=== PATIENT | male | born 1955 | race Caucasian/White ===

== ENCOUNTER → 2019-04-25 09:12 | Outpatient (CLI) | payer MEDICARE, SELFPAY ==
--- NOTE | 2019-04-25 09:21 | MR_ITS ---
PROCEDURE: MR HEAD/BRAIN WO/W CON CLINICAL INDICATION: HX OF PROSTATE CANCER, NEW ONSET HEADACHE Dizziness, headaches, history of prostate cancer COMPARISON: No exams were available for comparison TECHNIQUE: Routine multiplanar multi echo sequences are performed without and with gadolinium enhancement. FINDINGS: No midline shift, mass effect, intracranial hemorrhage or hydrocephalus is evident. There are scattered periventricular and subcortical T2 white matter hyperintensities which are nonspecific. These areas do not demonstrate contrast enhancement or restricted diffusion there is a small cystic area which measures 10 x 6 mm in the region of the right Xuan hippocampal gyrus and may represent a choroidal fissure cyst. This does not demonstrate contrast enhancement. The pituitary, optic chiasm, corpus callosum have an unremarkable appearance. Craniocervical junction is unremarkable. There is bulging disc at C3-C4 with narrowing of the canal which may be better evaluated with cervical spine MRI if clinically desired. 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 No mastoid effusion or sinus air-fluid level. IMPRESSION: 1. No acute intracranial findings. 2. Scattered periventricular and subcortical T2 white matter hyperintensities which may reflect ischemic gliotic changes from microvascular disease. Differential diagnosis includes migraine headache and demyelinating process. 3. 8 mm pineal cyst. 4. 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 Bulging disc at C3-C4 with canal stenosis which may be better evaluated with MRI of the cervical spine if clinically warranted Dictated by: Justin Browning MD 04/26/2019 10:54 Electronically signed by Justin Browning MD in [place] 04/26/2019 10:54
[2019-04-25 10:04] LABS: Blood Urea Nitrogen 16 mg/dl (9-20); Estimated Glomerular Filt Rate 85 ml/min (>60); GFR (African American) 103 ML/MIN (>60)
== END ==
PROVIDERS: PCP Family Medicine; Visit Provider Family Medicine
DX: R51 Headache (principal); Z85.46 Personal history of malignant neoplasm of prostate
CPT/HCPCS: 36415; 70553; 82565; 84520; A9576

== ENCOUNTER → 2020-03-31 09:31 | Outpatient (CLI) | payer MEDICARE, SELFPAY ==
[2020-03-31 10:46] LABS: Coronavirus 19 IgG Antibody Positive (Negative); Coronavirus 19 IgM Antibody Negative (Negative)
== END ==
PROVIDERS: Visit Provider Ophthalmology
DX: Z01.812 Encounter for preprocedural laboratory examination (principal); Z20.822 Contact with and (suspected) exposure to COVID-19; H25.11 Age-related nuclear cataract, right eye; Z86.16 Personal history of COVID-19
CPT/HCPCS: 36415; 86328

== ENCOUNTER 2020-04-01 07:06 | Day surgery (SDC) | payer MEDICARE, SELFPAY ==
[2020-03-27 13:49] VITALS: BMI 29.5
[2020-04-01 07:52] VITALS: BP 140/84; PULSE 53; RESP 18; TEMP 36.5; O2SAT 98
[2020-04-01 09:01] VITALS: BP 161/85; PULSE 56; RESP 20; O2SAT 98
[2020-04-01 09:06] VITALS: BP 147/81; PULSE 54; RESP 20; O2SAT 99
[2020-04-01 09:11] VITALS: BP 143/87; PULSE 55; RESP 18; O2SAT 100
[2020-04-01 09:16] VITALS: BP 139/89; PULSE 54; RESP 18; O2SAT 99
[2020-04-01 09:21] VITALS: BP 132/86; PULSE 69; RESP 18; TEMP 36.2; O2SAT 99
== END 2020-04-01 09:29 | disposition home or self-care (01) ==
LOC: OR 07:06
PROVIDERS: PCP Family Medicine; Visit Provider Ophthalmology
DX: H26.9 Unspecified cataract (principal); E78.5 Hyperlipidemia, unspecified; Z85.46 Personal history of malignant neoplasm of prostate; Z86.79 Personal history of other diseases of the circulatory system; Z80.9 Family history of malignant neoplasm, unspecified; Z82.49 Family history of ischemic heart disease and other diseases of the circulatory system; Z79.82 Long term (current) use of aspirin; Z79.899 Other long term (current) drug therapy
CPT/HCPCS: 66984; V2632

== ENCOUNTER → 2020-04-28 07:29 | Outpatient (CLI) | payer MEDICARE, SELFPAY ==
[2020-04-28 09:38] LABS: Coronavirus 19 IgG Antibody Positive (Negative); Coronavirus 19 IgM Antibody Negative (Negative)
== END ==
PROVIDERS: Visit Provider Ophthalmology
DX: Z01.812 Encounter for preprocedural laboratory examination (principal)
CPT/HCPCS: 36415; 86328

== ENCOUNTER 2020-04-29 06:35 | Day surgery (SDC) | payer MEDICARE, SELFPAY ==
[2020-04-22 10:24] VITALS: BMI 30.4
[2020-04-29 06:48] VITALS: BP 143/83; PULSE 56; RESP 18; TEMP 36.4; O2SAT 97
[2020-04-29 07:09] LABS: POC Glucose,Bedside 99 (70-110)
[2020-04-29 08:02] VITALS: BP 144/85; PULSE 55; RESP 16; O2SAT 99
[2020-04-29 08:07] VITALS: BP 151/85; PULSE 56; RESP 16; O2SAT 97
[2020-04-29 08:12] VITALS: BP 154/79; PULSE 56; RESP 16; O2SAT 97
[2020-04-29 08:17] VITALS: BP 155/88; PULSE 57; RESP 16; O2SAT 97
[2020-04-29 08:21] VITALS: BP 147/86; PULSE 55; RESP 16; TEMP 36.4; O2SAT 99
== END 2020-04-29 08:27 | disposition home or self-care (01) ==
LOC: OR 06:36
PROVIDERS: PCP Family Medicine; Visit Provider Ophthalmology
DX: H25.813 Combined forms of age-related cataract, bilateral (principal); H53.149 Visual discomfort, unspecified; E78.5 Hyperlipidemia, unspecified; Z85.46 Personal history of malignant neoplasm of prostate; Z82.49 Family history of ischemic heart disease and other diseases of the circulatory system; Z80.9 Family history of malignant neoplasm, unspecified; Z79.82 Long term (current) use of aspirin; Z79.899 Other long term (current) drug therapy
CPT/HCPCS: 66984; 82962; V2632

== ENCOUNTER → 2022-07-23 12:53 | Outpatient (CLI) | payer MEDICARE, SELFPAY ==
--- NOTE | 2022-07-23 | CA_ITS ---
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 HR Resting HR: 74 bpm Max Heart Rate (APMHR): 154 bpm Max HR Achieved: 136 bpm Target HR (85% APMHR): 131 bpm % of APMHR: 88 Recovery HR: 82 bpm BP Resting BP: 155/98 mmHg Max BP: 230/110 mmHg Recovery BP: 150.0/89.0 mmHg BP response to stress: Abnormal hypertensive response to stress. ECG Resting ECG: NSR Stress ECG: <1mm upsloping ST depression in the inferolateral leads Arrhythmia: None Recovery ST Change: Return to baseline Recovery Arrhythmia: None Clinical Reason for Termination: chest pain, elevated BP Exercise duration: 07:01 min Highest Stage Achieved: Stage 3: 3.4 mph at 14% grade. Exercise capacity: 10.1 METs Overall Exercise Capacity for Age: Good Stress ECG Conclusion The patient was able to exercise for 7m 01s, achieving 10.1 METs. The exercise stress test was stopped due to chest pain and elevated BP. He has good exercise capacity for age and sex. He has a normal HR response but an exaggerated BP response to exercise. At baseline, ECG demonstrated normal sinus rhythm with no significant ST changes. At peak stress, there were < 1mm upsloping ST depression that eventually were improving back to baseline during recovery. Findings are suggestive of possible ischemia. Myoview images are reported separately. Test Summary REST 03:09 0.0 0.0 74 . 155/ 98 . . Stage 1 01:00 10.0 1.7 90 . . . . Stage 1 02:00 10.0 1.7 108 . . . . Stage 1 03:00 10.0 1.7 108 . . . . Stage 2 01:00 12.0 2.5 118 . 180/100 . . Stage 2 02:00 12.0 2.5 129 . 180/100 . . Stage 2 . . . . . . . Myoview Injected Stage 2 03:00 12.0 2.5 129 . 210/110 . . Stage 3 01:00 14.0 3.4 136 . . . . Stage 3 01:01 14.0 3.4 136 . . . Stop exercise at 07:01 RECOVERY 01:00 0.0 0.0 108 . 230/110 . . RECOVERY 02:00 0.0 0.0 83 . 230/110 . . RECOVERY 03:00 0.0 0.0 81 . 178/ 94 . . RECOVERY 04:00 0.0 0.0 78 . 178/ 94 . . RECOVERY 05:00 0.0 0.0 78 . 155/ 88 . . RECOVERY 06:00 0.0 0.0 80 . 150/ 89 . . RECOVERY 06:14 0.0 0.0 83 . 150/ 89 . . Electronically signed by : Sofiya Shaw, 07/25/2022 17:29:48
--- NOTE | 2022-07-23 13:37 | NM_ITS ---
APPROVED REPORT Exam: Nuclear Stress Test Indication: CAD, 2 STENTS, H/O MT, HYPERLIPIDEMIA, FM HX, SOB Patient Location: Outpatient Stress Tech: Cassidy Hess PR Tech:CORDELIA Pappas RT(R)(N) Ht: 5 ft 11 in Wt: 210 lbs HR: 57 bpm BP: 153/91 mmHg BSA: 2.15 m2 TID: 1.15 BMI: 29.2 History: CAD, 2 STENTS, H/O MT, HYPERLIPIDEMIA, FM HX, SOB Procedure: Patient exercised on Shailesh protocol 7:00 minutes and sec, resting heart rate 57 bpm, resting blood pressure 153/91 mmHg, with exercise maximum heart rate achived was 131 bpm which is 88 % of the maximum predicted heart rate and blood pressure was 230/110 mmHg. Test was stopped due to FATIGUE. Patient has exercise capacity, achieved 10.1 METs of workload on treadmill, the blood pressure response to exercise was . Cardiac Stress and Resting SPECT Images: Cardiac Stress and Resting SPECT images were obtained using technetium 99m Myoview 32.1 mCi stress and 9.98 mCi at rest. Raw images demonstrate significant soft tissue shadowing along with significant GI count uptake, which may affect the diagnostic interpretation of the study. Resting and stress imaging in supine position demonstrate a large-sized, severe, fixed perfusion defect in the inferior LV wall, as well as a medium-sized, moderate, fixed perfusion defect in the basal to mid lateral LV wall. Both defects are no longer visualized with prone stress imaging. Findings are most suggestive of soft tissue attenuation. Gated imaging demonstrates mild reduction in global and regional LV systolic function. LVEF is calculated at 49%. Conclusion: Raw images demonstrate significant soft tissue shadowing along with significant GI count uptake, which may affect the diagnostic interpretation of the study. Soft tissue attenuation is present. No definite evidence of reversible ischemia. Gated imaging demonstrates mild reduction in global and regional LV systolic function. LVEF is calculated at 49%. Electronically signed by : Sofiya Shaw, 07/25/2022 17:38:50
== END ==
LOC: RAD 12:53
PROVIDERS: PCP Family Medicine; Visit Provider Family Medicine
DX: R06.09 Other forms of dyspnea (principal); I20.8 Other forms of angina pectoris
CPT/HCPCS: 78452; 93017; A9502; J2785

== ENCOUNTER → 2022-12-31 09:49 | Outpatient (CLI) | payer MEDICARE, SELFPAY ==
[2022-12-31 11:14] LABS: Chol/HDL Ratio 3.4 (1-3.5); Cholesterol 181 mg/dl (140-200); HDL Cholesterol 53 mg/dl (40-60); Triglycerides 68 mg/dl (30-150); VLDL Cholesterol 14 mg/dL (0-40)
== END ==
PROVIDERS: PCP Family Medicine; Visit Provider Nurse Practitioner Family
DX: E78.2 Mixed hyperlipidemia (principal); I25.119 Atherosclerotic heart disease of native coronary artery with unspecified angina pectoris; R07.89 Other chest pain; Z87.891 Personal history of nicotine dependence
CPT/HCPCS: 36415; 80061

== ENCOUNTER 2023-08-29 09:05 | Outpatient (CLI) | payer MEDICARE, SELFPAY ==
[2023-08-29 09:31] LABS: Basophils # 0.1 K/mm3 (0-0.2); Eosinophils # 0.2 K/mm3 (0.0-0.4); Hematocrit 42.9 % (42.0-52.0); Hemoglobin 14.5 g/dL (14.1-18.0); Lymphocytes # 1.7 K/mm3 (0.7-4.5); Lymphocytes % 22.3 % (10-50); Mean Corpuscular HGB Conc 33.8 g/dL (31.8-35.4); Mean Corpuscular Hemoglobin 27.8 pg (27.0-31.2); Mean Corpuscular Volume 82.2 fl (80-94); Mean Platelet Volume 8.7 fl (7.4-10.4); Monocytes # 0.6 K/mm3 (0.1-1.0); Monocytes % 7.5 % (1.7-9.3); Neutrophils % 66.2 % (37.0-80.0); Platelet Count 197 K/mm3 (142-424); Red Blood Count 5.22 M/mm3 (4.60-6.20); Red Cell Distribution Width 15.1 % (11.5-17.5); White Blood Count 7.6 K/mm3 (4.8-10.8)
[2023-08-29 11:10] LABS: Anion Gap 11.4 mEq/L (5-15); Blood Urea Nitrogen 16 mg/dl (9-20); Calcium 9.3 mg/dl (8.4-10.2); Carbon Dioxide 22 mmol/L (22.0-30.0); Chloride 112 mmol/L (98-107); Chol/HDL Ratio 3.8 (1-3.5); Cholesterol 143 mg/dl (140-200); Estimated Glomerular Filt Rate 75 ml/min (>60); GFR (African American) 90 ML/MIN (>60); Glucose 93 mg/dl (74-100); HDL Cholesterol 38 mg/dl (40-60); Potassium 4.4 mmoL/L (3.5-5.1); Sodium 141 mmol/L (136-145); Triglycerides 117 mg/dl (30-150); VLDL Cholesterol 23 mg/dL (0-40)
[2023-08-29 11:21] LABS: Direct LDL Cholesterol 69.54 mg/dL (100-129)
[2023-08-29 11:27] LABS: 25-OH Vitamin D, Total 40.3 ng/mL (30-100)
== END 2023-08-29 23:59 | disposition home or self-care (01) ==
LOC: LAB 09:07
PROVIDERS: PCP Family Medicine; Visit Provider Nurse Practitioner Family
DX: I25.119 Atherosclerotic heart disease of native coronary artery with unspecified angina pectoris (principal); E55.9 Vitamin D deficiency, unspecified; E56.9 Vitamin deficiency, unspecified; R07.89 Other chest pain; E67.3 Hypervitaminosis D
CPT/HCPCS: 36415; 80048; 80061; 82306; 85025